=== PATIENT | female | born 1985 | race Caucasian/White ===

== ENCOUNTER 2021-09-15 17:34 | Emergency (ER) | payer MEDICAID, SELFPAY ==
[2021-09-15 17:34] VITALS: BP 124/78; PULSE 138; RESP 18; TEMP 36.8; O2SAT 99; BMI 20.8
[2021-09-15 17:36] VITALS: BP 124/78; PULSE 138; RESP 18; TEMP 36.8; O2SAT 99
--- NOTE | 2021-09-15 18:21 | ED.VIS.DENTA ---
HPI History of Present Illness Chief Complaint: Dental Informant: patient Onset/Context/Timing Onset: Yesterday Context: Gradual Onset Timing: Continuous Quality: Dull, throbbing Location: Right upper molars Worsened by: Nothing Relieved by: - (Nothing) Associated Symptoms Assocated Symptom - Dental: jaw swelling and face swelling; Negative for fever, cold sensitivity or hot sensitivity Narrative Narrative: Patient presents with right upper dental pain that began yesterday. Patient states it became severe today. Patient noted some swelling over her right face today. Patient describes her pain as dull and throbbing. Patient states nothing makes it better nothing makes it worse. Patient denies any fevers or chills. Patient denies any hot or cold sensitivity. Patient admits to some swelling over her upper jaw and face. PFSH PFSH Medical History (Updated 09/15/21 @ 18:[address] Yusuf Najera DO) Endometriosis Home Medications Lactobacillus acidophilus [Acidophilus] 1 ea PO BID #20 capsule 02/08/17 [Rx Last Taken Unknown] amoxicillin-pot clavulanate [Augmentin 875-125 Tablet] 1 ea PO BID #14 tab 02/08/17 [Rx Last Taken Unknown] ibuprofen 400 mg PO TID #30 tablet 02/08/17 [Rx Last Taken Unknown] oxycodone-acetaminophen 1 - 2 tab PO Q6H PRN PRN #20 tab 02/08/17 [Rx Last Taken Unknown] clindamycin HCl [Cleocin HCl] 300 mg PO Q6H #40 capsule 09/15/21 [Rx Last Taken Unknown] Allergy/AdvReac Type Severity Reaction Status Date / Time No Known Allergies Allergy Verified 09/15/21 17:34 Surgical History (Updated 09/15/21 @ 18:[address] Yusuf Najera DO) Hx of laparoscopy Social History Smoking Status: Current every day smoker ROS ROS ED Constitutional Constitutional ED: Denies chills or fever(s) Eyes Eyes: Denies blurry vision or change in vision ENT ENT ED: Denies rhinorrhea or sore throat Cardiovascular Cardiovascular: Denies chest pain or palpitations Respiratory/Chest Respiratory/Chest: Denies cough or dyspnea Gastrointestinal Gastrointestinal: Denies nausea or vomiting Genitourinary Genitourinary ED: Denies dysuria or hematuria Musculoskeletal Musculoskeletal: Denies back pain or neck pain Integumentary Denies abscess or rash Neurologic Neurologic: Denies headache(s) or weakness Allergic/Immunologic Allergic/Immunologic ED: Denies mouth swelling or urticaria EXAM Physical Exam Const Vital Signs: 09/15/21 17:34 Temperature 98.3 F Temperature Source Temporal Pulse Rate 138 H Respiratory Rate 18 Blood Pressure 124/78 H Blood Pressure Mean 93 Pulse Ox 99 Oxygen Delivery Method Room Air Positive well nourished and well developed General Appearance ED: well developed and NAD HEENT HEENT Narrative: There are multiple dental caries of the upper and lower molars bilaterally. There is edema and tenderness over the gingiva around the right upper molars. There is no fluctuance. There is no discharge or drainage. Negative for trauma Teeth and Gingiva: caries and poor dentition Throat: posterior oropharynx normal Eyes PERRL and EOMs intact bilaterally Neck supple and no JVD General: anterior neck swelling and submandibular swelling Neuro oriented x3, CN's II-XII intact bilaterally, moves all extremities, no focal motor deficits and no sensory deficits noted Sensorium / Orientation: alert Motor Exam: strength 5/5 throughout Psych mental status grossly normal MDM MDM MDM Narrative Medical decision making narrative: Patient was given a dose of clindamycin and Tylenol here. Patient was given a prescription for clindamycin. Patient was instructed to follow-up with her dentist in 3-5 days. Patient was instructed to take Tylenol or ibuprofen as needed for pain. Patient understood and was agreeable with the plan. All questions were answered. Discharge Plan Triage Chief Complaint: Dental ED Provider: Yusuf Najera Dx/Rx/DC Orders Clinical Impression: Infected dental caries Instructions: ED Dental Cavity Prescriptions: New clindamycin HCl [Cleocin HCl] 300 MG capsule 300 mg PO Q6H Qty: 40 RF: 0 No Action oxycodone-acetaminophen 1 TABLET tablet 1 - 2 tab PO Q6H PRN PRN (Reason: Pain) Qty: 20 RF: 0 ibuprofen 400 MG tablet 400 mg PO TID Qty: 30 RF: 0 Lactobacillus acidophilus [Acidophilus] 1 EACH capsule 1 ea PO BID Qty: 20 RF: 0 amoxicillin-pot clavulanate [Augmentin] 1 EACH tablet 1 ea PO BID Qty: 14 RF: 0 Primary Care Provider: Care Physician,No Primary Referrals: Care Physician,No Primary [Primary Care Provider] - Dentist,Your [STAFF PHYSICIAN] - 3-5 Days Disposition Disposition: Home, Self Care
[2021-09-15] MEDS: Clindamycin HCl 150 MG Capsule 300 MG PO (18:30)
[2021-09-15] MEDS: Acetaminophen 500 MG Tablet 1000 MG PO (18:30)
[2021-09-15 18:32] VITALS: PULSE 111; RESP 16; O2SAT 100
== END 2021-09-15 18:36 | disposition home or self-care (01) ==
PROVIDERS: Emergency Provider Emergency Medicine; Visit Provider Emergency Medicine
DX: K02.9 Dental caries, unspecified (principal); F17.200 Nicotine dependence, unspecified, uncomplicated
CPT/HCPCS: 99283

== ENCOUNTER 2023-06-06 17:01 | Emergency (ER) | payer MEDICAID, SELFPAY ==
[2023-06-06 17:01] VITALS: BP 138/101; PULSE 113; RESP 16; TEMP 36.4; O2SAT 98; BMI 18.8
--- NOTE | 2023-06-06 17:46 | ED.VIS.BACK ---
HPI History of Present Illness Chief Complaint: Back Narrative Narrative: 37-year-old female who denies significant past medical history presents with left-sided low back pain that she has had for the last 7 days. 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 She denies any fevers or chills. No loss of bowel or bladder, no saddle anesthesia. She states that she also had pain that went down her leg. It has not gotten any worse, but has not gotten any better. It is only on the left side. She denies any vaginal bleeding. No dysuria or hematuria. It somewhat worsened with transfer and bending, but she denies any injury. [facility] Medical History Endometriosis Home Medications cyclobenzaprine 10 mg tablet 10 mg PO TID PRN Muscle Spasm #20 TABLETS 06/06/23 [Rx Last Taken Unknown] naproxen 500 mg tablet (Naprosyn) 500 mg PO BID PRN pain #20 tabs 06/06/23 [Rx Last Taken Unknown] Allergy/AdvReac Type Severity Reaction Status Date / Time No Known Allergies Allergy Verified 06/06/23 17:24 Surgical History Hx of laparoscopy Social History Smoking Status: Current every day smoker tobacco type: cigarettes ROS ROS ED ROS Narrative Constitutional: No fever, no chills. HEENT: No sore throat. No neck pain. No loss of vision. No rhinorrhea. Cardiovascular: No chest pain. No palpitations. No pedal edema. Respiratory: No cough, no shortness of breath. Abdominal: No abdominal pain. Stomach feels bubbly . No nausea. No vomiting. Genitourinary: No dysuria. No hematuria. Musculoskeletal: No myalgias. No arthralgias. Left-sided low back pain worse with movement. Neurologic: No headaches. No dizziness. No lightheadedness. Skin: No rash. No change in color. Psychiatric: No depression. No anxiety. EXAM Physical Exam Narrative Exam Narrative: Afebrile. Vital signs noted. HEENT: Normocephalic. Atraumatic. PERRL, EOMI. Neck soft and supple. No point tenderness or step off. Cardiovascular: Regular rate and rhythm. No murmurs, rubs, or gallops appreciated. Respiratory: No tachypnea. Lungs clear to auscultation bilaterally. Gastrointestinal: Abdomen soft, nontender, with normoactive bowel sounds. No rebound or guarding. Neurological: Awake. Alert. Nonfocal, nonlateralizing. EHL intact bilaterally. Patellar DTRs equal and symmetric. Straight leg raising in the supine position negative bilaterally. Skin: No rash. Normal color. No pallor. Musculoskeletal: No pedal edema. Full range of motion extremities. No lumbar vertebral point tenderness or bony step-off. Mild tenderness to palpation left paraspinal musculature. Const Vital Signs: 06/06/23 17:01 Temperature 97.5 F L Temperature Source Temporal Pulse Rate 113 H Respiratory Rate 16 Blood Pressure 138/101 H Blood Pressure Mean 113 Pulse Ox 98 Oxygen Delivery Method Room Air MDM MDM MDM Narrative Medical decision making narrative: In the differential diagnosis is sacroiliitis versus paraspinal muscle strain versus ureterolithiasis versus cauda equina. She is shows no red flag signs for cauda equina or disc herniation. I do not feel that she needs an emergent MRI. While she complains of swelling and puffiness on the left paraspinal musculature, I do not feel that x-rays are indicated as she denies any fall or trauma so I have low concern for fracture. Urinalysis will be obtained along with urine . She will be administered Toradol 30 mg intramuscularly and Norflex 60 mg intramuscularly. I do not feel that she needs other laboratory work or blood testing, and I do not feel that she needs an ultrasound either. I reviewed her laboratory work and her test is negative. While her urine is positive for nitrites, there are 25 leukocyte Estrace but 0-5 WBCs and 10-25 squamous epithelial cells. I feel this is more of a contaminated specimen. Upon repeat examination after Toradol and Norflex, patient is sitting up in bed. I do feel that she probably has more musculoskeletal back pain. I will defer antibiotics to urine culture as she states that she is only had 1 urinary tract infection previously and it did not feel like this. I feel she be discharged to follow-up with a primary care provider. She was referred to a primary care provider on-call. I do not feel she requires admission. Return instructions reviewed. Disposition is discharged home in stable condition. History & Record Review Discussion w/independent historian: Patient Lab Data Attestation: I reviewed the patient's lab results. Labs: Laboratory Results - last 24 hr 06/06/23 18:41 Urine Color Yellow Urine Clarity Cloudy Urine pH 7.0 Ur Specific [place] 1.015 Urine Protein 15 H Urine Glucose (UA) Normal Urine Ketones Negative Urine Occult Blood 250 H Urine Nitrite Positive H Urine Bilirubin Negative Urine Urobilinogen Normal Ur Leukocyte Esterase 25 H Urine RBC 0 SEEN Urine WBC 0-5 SEEN Ur Squamous Epith Cells 10-25 SEEN Urine Bacteria 1+ Urine Mucus 0 SEEN Urine Test Negative Discharge Plan Triage Chief Complaint: Back ED Provider: Shane Marrufo Dx/Rx/DC Orders Clinical Impression: Lumbar strain, Acute left-sided low back pain Instructions: ED Back Pain (Acute or Chronic), ED Back Sprain/Strain, ED Flank Pain, Uncertain Cause Prescriptions: New naproxen [Naprosyn] 500 mg tablet 500 mg PO BID PRN (Reason: pain) Qty: 20 0RF cyclobenzaprine 10 mg tablet 10 mg PO TID PRN (Reason: Muscle Spasm) Qty: 20 0RF Primary Care Provider: Care Physician,No Primary Referrals: Elba Hernandez MD [Med Staff - [employer]] - As soon as possible Care Physician,No Primary [Primary Care Provider] - Disposition Disposition: Home, Self Care
[2023-06-06] MEDS: Ketorolac 30 MG/ML Syringe IM (17:56)
[2023-06-06 18:47] LABS: Mucous, Urine 0 SEEN /hpf (<or=2+); Red Blood Cells-Urine 0 SEEN /hpf (0-5)
[2023-06-06 18:52] LABS: Color, Urine Yellow (Yellow); Glucose, Dipstick Normal (Normal); Ketone-Dipstick Negative (Negative); Leukocyte Esterase-Dipstick 25 /ul (Negative); Nitrite-Dipstick Positive (Negative); Occult Blood-Urine 250 /ul (Negative); Protein-Dipstick 15 mg/dl (Negative); Specific Gravity, Urine 1.015 (1.002-1.030); Urine Bilirubin Dipstick Negative (Negative); Urine Clarity Cloudy (Clear); Urine Urobilinogen Normal (Normal)
[2023-06-06 18:58] LABS: Internal QC Validated? YES +Cl - CLEAR BKGD; Pregnancy, Urine Negative Negative; Squamous Epithelial Cells - UA 10-25 SEEN /hpf (5-10)
[2023-06-06 18:59] LABS: Bacteria 1+ /hpf (None Seen); White Blood Cells 0-5 SEEN /hpf (0-5)
[2023-06-06 19:37] VITALS: BP 136/70; PULSE 93; RESP 18; TEMP 36.4; O2SAT 96
--- OUTSIDE RECORDS SUMMARY | 2023-06-06 20:16 | XMS RPT_ITS | CCD ---
Author Name Unknown Address [address] [place] [address] Organization [facility] Care Team Providers Care Delivery Man Name Role Phone Unavailable Primary Care Provider Unavailabl e Medications Current Medications Medication Drug Class(es) Dates Sig (Normalized) Sig (Original) biotin 10 mg oral tablet (2 sources) Biotin 42250 MCG TABS Take 2,000 mcg by mouth daily 0 Active cephalexin 500 mg oral capsule (2 sources) Cephalosporin Antibacterial Start: 01-15-2019 End: 01-22-2019 take 1 capsule by mouth four times daily cephALEXin (KEFLEX) 500 MG capsule Take 1 capsule by mouth 4 times daily for 7 days 28 capsule 0 01/15/2019 01/22/2019 Active Completed/Discontinued Medications Medication Drug Class(es) Dates Sig (Normalized) Sig (Original) calcium chloride 0.0014 meq/ml / potassium chloride 0.004 meq/ml / sodium chloride 0.103 meq/ml / sodium lactate 0.028 meq/ml injectable solution (1 source) Start: 04-18-2021 End: 04-18-2021 lactated ringers bolus 1 ml ketorolac tromethamine 30 mg/ml cartridge (1 source) Nonsteroidal Anti-inflammatory Drug, Cyclooxygenase Inhibitor Start: 04-18-2021 End: 04-18-2021 ketorolac (TORADOL) injection 15 mg 10 ml lidocaine hydrochloride 10 mg/ml injection (1 source) Antiarrhythmic, Amide Local Anesthetic Start: 05-08-2019 End: 05-08-2019 lidocaine PF 1 % injection 20 mL Problems Active Problems Problem Classification Problem Date Documented Da te Episodic/Chronic Anxiety disorders (1 source) Anxiety disorder; Translations: [Anxiety disorder, unspecified] Onset: 08-31-2014 04-18-2021 Chronic Other connective tissue disease (1 source) Pain in right foot; Translations: [Pain in right foot] Episodic Skin and subcutaneous tissue infections (1 source) Cellulitis of finger of right hand; Translations: [Cellulitis of finger of right hand] Past or Other Problems Problem Classification Problem Date Documented Da te Episodic/Chronic Skin and subcutaneous tissue infections (2 sources) Paronychia of finger of left hand; Translations: [Cellulitis of finger of left hand] Episodic Results Test Name Value Interpretation Reference Range Facil ity Vital Signs Date Time Vital Sign Value Performing Clinician Faci lity 04-18-2021 21:53-0500 Diastolic blood pressure 91 mm[Hg] Russell Cortes MD Work Phone: [facility] 04-18-2021 21:53-0500 Heart rate 106 /min Russell Cortes MD Work Phone: [facility] 04-18-2021 21:53-0500 Respiratory rate 16 /min Russell Cortes MD Work Phone: [facility] 04-18-2021 21:53-0500 SaO2% (BldA) [Mass fraction] 100 % Russell Cortes MD Work Phone: [facility] 04-18-2021 21:53-0500 Systolic blood pressure 121 mm[Hg] Russell Cortes MD Work Phone: [facility] 04-18-2021 21:03-0500 Body mass index (BMI) [Ratio] 20.12 kg/m2 Russell Cortes MD Work Phone: [facility] 04-18-2021 21:03-0500 Body temperature 98.49 [degF] Russell Cortes MD Work Phone: [facility] 04-18-2021 21:03-0500 Body weight 49.9 kg Russell Cortes MD Work Phone: [facility] 05-08-2019 05:33-0500 Body mass index (BMI) [Ratio] 20.12 kg/m2 Luiz Bernal DO Work Phone: [facility] Work Phone: 05-08-2019 05:33-0500 Body temperature 97.7 [degF] Luiz Bermudian DO Work Phone: [facility] Work Phone: 05-08-2019 05:33-0500 Body weight 49.9 kg Luiz Bermudian DO Work Phone: [facility] Work Phone: 05-08-2019 05:33-0500 Diastolic blood pressure 96 mm[Hg] Luiz Bermudian DO Work Phone: [facility] Work Phone: 05-08-2019 05:33-0500 Heart rate 125 /min Luiz Bermudian DO Work Phone: [facility] Work Phone: 05-08-2019 05:33-0500 Respiratory rate 16 /min Luizkristen Ramsh DO Work Phone: [facility] Work Phone: 05-08-2019 05:33-0500 SaO2% (BldA) [Mass fraction] 100 % Luizkristen Ramsh DO Work Phone: [facility] Work Phone: 05-08-2019 05:33-0500 Systolic blood pressure 150 mm[Hg] Luizkristen Bernal DO Work Phone: [facility] Work Phone: 01-15-2019 03:35-0400 Body Temperature 97.7 [degF] Gerardo [employer] [place] 01-15-2019 03:35-0400 BP Diastolic 100 mm[Hg] Gerardo [employer] , [place] 01-15-2019 03:35-0400 BP Systolic 127 mm[Hg] [facility] [place] 01-15-2019 03:35-0400 Pulse (Heart Rate) 125 /min [facility] [place] 01-15-2019 03:35-0400 Pulse Oximetry 100 % [facility] [place] 01-15-2019 03:35-0400 Respiratory Rate 16 /min Gerardo Zeina [place], [place] Encounters Encounter Date Encounter Type Care Provider Facility Start: 04-18-2021 End: 04-18-2021 Emergency department patient visit Russell Cortes MD Work Phone: [facility] ED Procedures Date Procedure Procedure Detail Performing Clinician Start: 04-18-2021 Basic metabolic pane l calcium total Russell Cortes MD Work Phone: Start: 05-08-2019 Radex hand minimum 3 views Luiz Bernal DO Work Phone: Plan of Treatment Date Care Activity Detail Author Start: 12-15-2020 Influenza vaccination Flu vaccine (# 1) [facility] Start: 12-15-2018 Influenza vaccination Flu vaccine (# 1) [place], [place] Start: 06-16-1991 COVID-19 Vaccine (1) COVID-19 Vaccin e (1) [facility] Immunizations Immunization Date Immunization Notes Care Provider Fa cility 05-08-2019 tetanus toxoid, redu paresh diphtheria toxoid, and acellular pertussis vaccine, adsorbed Luiz Ramsh DO Work Phone: [facility] 05-08-2019 diphtheria, tetanus toxoids and acellular pertussis vaccine, unspecified formulation Luiz Bernal DO Work Phone: [facility] Work Phone: 04-27-2018 tetanus toxoid, redu paresh diphtheria toxoid, and acellular pertussis vaccine, adsorbed Gerardo PARK Social History Date Type Detail Facility Start: 01-15-2019 End: 05-08-2019 Tobacco smoking status NHIS Current every day smoker [place], [place] History of tobacco use Cigarette Smoker [place], [place] Start: 01-15-2019 End: 05-08-2019 Cigarettes smoked current (pack per day) - Reported [place], [place] Start: 01-15-2019 Alcohol intake No [place], [place] Start: 1985 Sex Assigned At Not on file [place], [place] Start: 10-05-2015 Tobacco use and exposure Smoke less tobacco non-user [facility] Work Phone: Start: 05-08-2019 End: 04-18-2021 Alcohol intake Current non-drinker of alcohol (finding) [facility] Work Phone: Exposure to SARS-CoV -2 (event) Not sure [facility] Work Phone: Evaluation note Note Date & Type Note Facility documented in this encounter [facility] Work Phone: Evaluation note Note Date & Type Note Facility documented in this encounter [facility] Work Phone: Hospital Discharge instructions Attachments Note Date & Type Note Facility Hospital Discharge instructions The following attachments cannot be sent through Care Everywhere.Foot Pain (Belgian)documented in this encounter [facility] Work Phone: Hospital Discharge instructions Attachments Note Date & Type Note Facility Hospital Discharge instructions The following attachments cannot be sent through Care Everywhere.Paronychia (Belgian)Cellulitis (Belgian)documented in this encounter [facility] Work Phone: Summary Purpose Family History No Family History Records FoundNo Family History Records Found Advance Directives No Advanced Directives Records FoundNo Advanced Directives Records Found Discharge Instructions * Instructions* Gerardo Pastrana MD - 01/15/2019 Examination today did not have a specific area of fluctuance or abscess area. Your thumb has an infection and it could develop into an abscess over time. Please follow up with hand specialist or return to the emergency department for reevaluation. [facility] has orthopedic surgery residentconsultation available 24 hours a day. * Attachments The following attachments cannot be sent through Care Everywhere. * Cellulitis (Belgian) * Pulp-Space Infection (Belgian) documented in this encounter Assessments Diagnosis Cellulitis of finger of right hand- Primary Cellulitis and abscess of finger, unspecified Reason for Referral Specialty Diagnoses / Procedures Referred By Dodie peguero Referred To Contact Orthopedic Surgery Diagnoses Right foot pain Russell Cortes MD [address] [place] [address] [place] [id number] [address] [place] [address] Referral ID Status Reason Start Date Expiration Date V isits Requested Visits Authorized [id number] Open Specialty Services Required 04/18/2021 04/18/2022 1 1 Scheduling Instructions [facility] Orthopedics Foot/Ankle Lower Extremities - Mark [facility] [address] [place] [address] Additional Source Comments INFORMATION SOURCE (unrecogn ized section and content) DATE CREATED AUTHOR AUTHOR'S ORGANIZ ATION 09/19/2021 [facility] Reason for Visit (unrecogniz ed section and content) Reason Comments Foot Swelling Reason Comments Hand Injury left middle finger Ordered Prescriptions (unrec ognized section and content) Scheduled Active and Recently Administ ered Medications (unrecognized section and content) FOR RECORDS PERTAINING TO PATIENTS WHO ARE OR HAVE BEEN ENROLLED IN A CHEMICAL DEPENDENCY/SUBSTANCEABUSE PROGRAM, SOME INFORMATION MAY BE OMITTED. This clinical summary was aggregated from multiple sources. Caution should be exercised in using it in the provision of clinical care. This summary normalizes information from multiple sources, and as a consequence, information in this document may materially change the coding, format and clinical context of patient data. In addition, data may be omitted in some cases. CLINICAL DECISIONS SHOULD BE BASED ON THE PRIMARY CLINICAL RECORDS. [facility] [employer] [facility]. provides no warranty or guarantee of the accuracy or completeness of information in this document.
== END 2023-06-06 19:42 | disposition home or self-care (01) ==
PROVIDERS: Emergency Provider Emergency Medicine; Visit Provider Emergency Medicine
DX: S39.012A Strain of muscle, fascia and tendon of lower back, initial encounter (principal); F17.210 Nicotine dependence, cigarettes, uncomplicated; X58.XXXA Exposure to other specified factors, initial encounter
CPT/HCPCS: 81001; 81025; 87077; 87086; 87088; 87186; 96372; 99282